=== PATIENT | female | born 1965 | race Caucasian/White ===

== ENCOUNTER 2018-03-27 08:57 | Day surgery (SDC) | payer OTHER ==
[~2018-03-27 08:57] MED LIST: EPHEDrine SULFATE 50 MG/5 ML SYG
[2018-03-27] MEDS ORDERED: SOD CHLORIDE 0.9% 1,000 ML IV (11:00)
[2018-03-27] MEDS: CEFAZOLIN 2 GM/50 ML (PMX) 50 ML IVPB (11:00)
[2018-03-27] MEDS ORDERED: MIDAZOLAM 1 MG/ML 2 ML INJ (13:17)
[2018-03-27] MEDS ORDERED: FENTAnyl 50 MCG/ML VIAL (13:17)
[2018-03-27] MEDS ORDERED: LIDOCAINE 2% (SDV) 5 ML INJ (13:19)
[2018-03-27] MEDS ORDERED: ROPIVACAINE 0.5 % 30 ML VIAL (13:19)
[2018-03-27] MEDS ORDERED: ROCURONIUM 50 MG INJ (13:19)
[2018-03-27] MEDS ORDERED: SUCCINYLCHOLINE CHLORIDE 100 MG/5 ML SYG IV (13:19)
[2018-03-27] MEDS ORDERED: PROPOFOL 20 ML (13:19)
[2018-03-27] MEDS ORDERED: OXYCODONE/ACETAMINOPHEN (5/325) TAB PO (13:30)
[2018-03-27] MEDS ORDERED: PROCHLORPERAZINE 10 MG INJ IV (13:30)
[2018-03-27] MEDS ORDERED: HYDROmorphONE 1 MG/5 ML IV SYRINGE IV (13:30)
[2018-03-27] MEDS ORDERED: FENTAnyl 50 MCG/ML VIAL IV ×2 (13:30)
[2018-03-27] MEDS ORDERED: DIPHENHYDRAMINE 50 MG INJ IV (13:30)
[2018-03-27] MEDS ORDERED: ONDANSETRON 4 MG INJ (13:56)
[2018-03-27] MEDS ORDERED: DEXAMETHASONE 4 MG/ML 1 ML INJ (13:56)
[2018-03-27] MEDS ORDERED: FAMOTIDINE 20 MG INJ (13:56)
[2018-03-27] MEDS ORDERED: CEFAZOLIN 1 GM INJ (14:02)
[2018-03-27] MEDS ORDERED: GLYCOPYRROLATE 0.4 MG INJ ×2 (14:26→16:18)
[2018-03-27] MEDS ORDERED: NEOSTIGMINE 3 MG/3 ML SYRINGE ×2 (14:26→16:18)
[2018-03-27] MEDS: MEPERIDINE 25 MG INJ IV (14:53)
[2018-03-27] MEDS: ONDANSETRON 4 MG INJ IV (14:53)
[2018-03-27] MEDS: HYDROmorphONE 1 MG/5 ML IV SYRINGE IV ×2 (15:02→15:08)
[2018-03-27] MEDS: FENTAnyl 50 MCG/ML VIAL IV (15:17)
[2018-03-27] MEDS: HYDROCODONE/APAP (5/325) TAB PO (15:19)
[2018-03-27] MEDS ORDERED: KETOROLAC 30 MG INJ (16:18)
== END 2018-03-27 16:42 | disposition home or self-care (01) ==
LOC: SDS 08:57
DX: D41.4 Neoplasm of uncertain behavior of bladder (principal); R10.11 Right upper quadrant pain; K66.0 Peritoneal adhesions (postprocedural) (postinfection)
CPT/HCPCS: 47562; 71045; 88304